=== PATIENT | female | born 1935 | race Caucasian/White ===

== ENCOUNTER 2017-10-19 10:25 | Outpatient (CLI) | payer MEDICARE, BC ==
--- NOTE | 2017-10-19 13:44 | CT ---
CT ANGIOGRAM OF THE BRAIN WITH AND WITHOUT CONTRAST: Date: 10-19-17 History: 82-year-old female with diagnosis of I63.9, cerebral infarction. According to the electro mechanical technologist, patient has history of aneurysm. Patient denies any problems at this time. This is a follow up. Comparison: No imaging studies of any modality of any body part is currently available. Technique: Standard noncontrast CT of brain performed. Next, IV injection of 100 ml of Isovue 370. Arterial bolus chasing technique scan performed from C1-2 level to vertex of head. Coronal and sagittal 3D MIP reconstructions. FINDINGS: There is a moderate-sized region of encephalomalacia and gliosis in the posterior left parietal niles x and underlying subcortical and deep white matter, encroaching upon the posterior superior frontal l obe. There is diffuse brain parenchymal volume loss. There are moderate-severe chronic ischemic white daphney er changes in the quick radiata and centrum semiovale. No obstructive hydrocephalus, acute intraaxia l or extraaxial hemorrhage, mass effect, midline shift, or extraaxial fluid collection. There is a stent thoughout the left sided carotid siphon. No significant atherosclerotic calcificatio n of any of the intracranial arteries, including the right carotid siphon. No evidence of any focal a cquired stenosis of any of the arteries of the anterior circulation or posterior circulation. No thro mbosis or occlusion. No evidence of AVM or dural venous sinus thrombosis. An anterior communicating a rtery is visualized. At the junction between the A1 segment and A2 segment of the left anterior cerebral artery and the an terior communicating artery, there is a minimal focal fusiform dilation of the origin of the left A2 segment, measuring approximately 3 x 3 mm. Otherwise, there is no other area suspicious for aneurysm. IMPRESSION: 1. Region of encephalomalacia consistent with old insult, probably old infarction in the left middle cerebral artery territory, in the left posterior upper parietal lobe. 2. Moderate to severe chronic ischemic white matter changes. 3. Slightly bulbous appearance of the origin of the A2 segment of the left anterior cerebral artery, which may be on the verge of becoming a small aneurysm. 4. No other patent potential aneurysm identified. 5. Stent in the left carotid siphon. 6. No other intracranial vascular abnormality identified. POS: MKCINLEY
== END 2017-10-19 10:26 | disposition home or self-care (01) ==
LOC: CT 10:25
PROVIDERS: ATTEND Psychiatry & Neurology Neurology
DX: I63.9 Cerebral infarction, unspecified (principal); I67.82 Cerebral ischemia; G93.89 Other specified disorders of brain; Z95.828 Presence of other vascular implants and grafts
CPT/HCPCS: 70496

== ENCOUNTER 2018-03-08 09:42 | Outpatient (CLI) | payer MEDICARE, BC ==
--- NOTE | 2018-03-08 12:05 | ULT ---
BILATERAL SCREENING VENOUS ULTRASOUND: Comparison: None. History: Swelling and edema since stroke that happened two years ago. Technique: Multiplanar grayscale and color doppler images were obtained in a bilateral lower extremit y venous ultrasound. Spectral analysis with doppler waveforms were performed. FINDINGS: The bilateral common femoral veins, profunda femoral veins, superficial femoral veins, and popliteal veins are normal in appearance without visible thrombus. These also demonstrate normal compression, f low, and augmentation. The posterior tibial veins and greater saphenous veins are also patent. IMPRESSION: No evidence of DVT. POS: [facility]IN[facility]
== END 2018-03-08 09:43 | disposition home or self-care (01) ==
LOC: ULT 09:42
PROVIDERS: ATTEND Psychiatry & Neurology Neurology
DX: R60.0 Localized edema (principal); R20.2 Paresthesia of skin; R29.898 Other symptoms and signs involving the musculoskeletal system
CPT/HCPCS: 93970

== ENCOUNTER 2018-11-28 23:02 | Emergency (ER) | payer MEDICARE, BC | END 2018-11-29 00:21 | disposition left against medical advice (07) | LOC: ERS 23:02 | DX: Z53.21 Procedure and treatment not carried out due to patient leaving prior to being seen by health care provider (principal) ==

== ENCOUNTER 2020-04-14 02:18 | Emergency (ER) | payer MEDICARE ==
[2020-04-14] MEDS ORDERED: Morphine 2 MG/ML SYRINGE ONE (02:50)
--- NOTE | 2020-04-14 07:58 | ULT ---
PRELIMINARY REPORT/[facility]/EMERGENCY AFTER HOURS PROCEDURE PROCEDURE: RIGHT Lower Extremity Doppler Venous Study . HISTORY: History . TECHNIQUE: Real-time and color Doppler ultrasound was performed of the deep venous system of the [facility] T lower extremity. COMPARISONS: None . TECHNICAL QUALITY: Satisfactory . FINDINGS: There was normal Doppler flow with no filling defects identified in the deep venous system of the [facility] lower extremity. There was normal compression and augmentation of the RIGHT common femoral, superficial femoral, great er saphenous, profundofemoral, popliteal, anterior tibial, and posterior tibial veins. IMPRESSION: No evidence of deep venous thrombosis . ELECTRONICALLY SIGNED BY: Claudio Rosenthal MD Apr 14, 2020 4:10:52 AM CDT This report is intended for review by the ordering physician only, in accordance of law. If you recei ve this report in error, please call [facility] at [phone]. FINAL REPORT Exam: Right lower extremity venous ultrasound with Doppler HISTORY: Erythema, swelling and pain. COMPARISON: None. TECHNIQUE: Grayscale, color flow, Doppler imaging and spectral waveform analysis performed of the [facility] lower extremity venous system. FINDINGS: There is compressibility, presence of flow and augmentation in the common femoral vein, femoral vein and popliteal vein. There is flow in the greater saphenous vein and profunda femoral vein and posterior tibial vein. IMPRESSION: No evidence of thrombus in the left lower extremity deep venous system. This report is in agreement w ith initial report by [facility]. Transcribed Date/Time: 04/14/2020 9:19 AM
--- NOTE | 2020-04-14 08:02 | RAD ---
Exam: Lumbar spine 3 views HISTORY: Back pain. COMPARISON: None. FINDINGS: Five lumbar-type vertebra. There appears to be loss of vertebral body height at L1, incompletely eval uated. Lumbar spine MRI may be beneficial. Grade 1 anterolisthesis of L3 upon L4 and L4 upon L5 without definite associated spondylolysis. Visualized bony pelvis and sacrum are intact. There is diffuse bone demineralization. IMPRESSION: Indeterminate L1 vertebral body fracture. Better interrogation with MRI is recommended given diffuse bone demineralization. Results of study discussed with Dr. Leigh on 04/14/2020 at 8:01 AM Code CR Transcribed Date/Time: 04/14/2020 9:21 AM
== END 2020-04-14 04:47 | disposition home or self-care (01) ==
LOC: ERS 02:18
DX: M54.5 Low back pain (principal); M79.89 Other specified soft tissue disorders; E03.9 Hypothyroidism, unspecified; K21.9 Gastro-esophageal reflux disease without esophagitis; Z86.73 Personal history of transient ischemic attack (TIA), and cerebral infarction without residual deficits; Z79.82 Long term (current) use of aspirin; Z79.899 Other long term (current) drug therapy
CPT/HCPCS: 72100; 96372; J2270

== ENCOUNTER 2020-05-03 20:07 | Emergency (ER) | payer MEDICARE, BC ==
[~2020-05-03 20:07] MED LIST: Iopamidol-370 76% 500 ML 1 ML ONE
[2020-05-03 21:13] LABS: #Basophils 0.1 thou/uL (0.0-0.2); #Eosinphils 0.3 thou/uL (0.0-0.7); #Lymphocytes 2.1 thou/uL (1.20-3.40); #Monocytes 1.3 thou/uL (0.11-0.59); #Neutrophils 5.3 thou/uL (1.40-6.50); %Eosinophils 3.4 % (0.0-10.0); %Lymphocytes 23.2 % (21.0-51.0); %Monocytes 14.5 % (0.0-10.0); Hemoglobin 11.6 g/dL (12.0-16.0); Mean Corpuscular HGB CONC 32.1 g/dL (32.0-36.0); Mean Corpuscular Hemoglobin 31.5 pg (27.0-31.0); Mean Corpuscular Volume 98.2 fL (78.0-98.0); Mean Platelet Volume 7.1 fL (7.4-10.4); Platelet Count 356 thou/uL (130-400); RBC Distribution Width 11.7 % (11.5-14.5); Red Blood Cell (RBC) Count 3.69 mill/uL (4.20-5.40); White Blood Cell (WBC) Count 9.2 thou/uL (4.8-10.8)
[2020-05-03 21:25] LABS: Bilirubin Negative (Negative); Blood, Urine Negative (Negative); Clarity Clear (Clear); Glucose, Urine (Dipstick) Normal (Negative); Ketone, Urine Trace mg/dL (Negative); Leukocyte Negative Leu/uL (Negative); Nitrite Negative (Negative); Protein, Urine (Dipstick) 30 mg/dL (Neg-Trace); Specific Gravity, Urine 1.019 (1.002-1.036); Squamous Epithelial 0-3 HPF (0-3); Urobilinogen Normal mg/dL (Less than 2); pH, Urine 6.5 (5.0-9.0)
[2020-05-03] MEDS ORDERED: Morphine 4 MG/ML VIAL ONE (21:32)
[2020-05-03 21:40] LABS: Bacteria/HPF 1+ HPF (None Seen)
[2020-05-03] MEDS ORDERED: Ondansetron PF 4 MG/2 ML Vial ONE (21:43)
[2020-05-03 22:00] LABS: Albumin 3.7 g/dL (3.4-4.8)
[2020-05-03 22:02] LABS: Calcium 9.2 mg/dL (7.8-10.44); Chloride 99 mmol/L (98-107); Potassium 4.2 mmol/L (3.5-5.1); Sodium 132 mmol/L (136-145)
[2020-05-03 22:03] LABS: Globulin 3.2 g/dL (2.4-3.5); Glucose 103 mg/dL (83-110); Protein, Total 6.9 g/dL (6.0-8.3)
[2020-05-03 22:04] LABS: Anion Gap 14 mmol/L (10-20); Bilirubin, Total 0.3 mg/dL (0.2-1.2); Carbon Dioxide 23 mmol/L (23-31)
[2020-05-03 22:05] LABS: Alkaline Phosphatase 85 U/L (40-110)
[2020-05-03 22:06] LABS: Calc. Creatinine Clearance 0 mL/min (70-130); Estimated GFR-MDRD 80
[2020-05-03 22:07] LABS: BUN (Urea Nitrogen) 10 mg/dL (9.8-20.1)
[2020-05-03 22:08] LABS: AST (SGOT) 24 U/L (5-34)
[2020-05-03 22:09] LABS: ALT (SGPT) 15 U/L (8-55)
--- NOTE | 2020-05-03 23:46 | CT ---
CT ABDOMEN AND PELVIS WITH IV CONTRAST 05/03/2020 CLINICAL INFORMATION: Abdomen and back pain. Urinary retention. COMPARISON: Noncontrast CT abdomen and pelvis on 04/24/2020 Technique: Multiple contiguous axial CT images are obtained through the abdomen and pelvis with IV contrast. Cor onal reformatted images are provided. FINDINGS: Lower Chest: Approximately 8 mm pulmonary nodule in the right middle lobe with additional adjacent re ticulonodular densities. These findings may be secondary to infectious or inflammatory process. However, given prominence of this nodular density, follow-up evaluation is recommended. Vessels: Vascular calcifications are seen in the abdominal aorta and iliac arteries. Abdomen: Portal vein:Patent Gallbladder: Increased density within the gallbladder on prior study is not appreciated on the curren t study. Liver: within normal limits. Spleen: within normal limits. Pancreas: within normal limits. Adrenals: within normal limits. Kidneys: An inferior pole left renal cyst is again seen with subcentimeter too small to characterize hypodense lesion midportion left kidney. Right kidney has a normal CT appearance and is rotated. Bowel: Moderate amount retained fecal material is again seen throughout the colon. Loops of small bow el are normal in caliber. Appendix: Not definitely visualized, but there are no secondary signs to suggest appendicitis. Peritoneum: No ascites or free air; no fluid collection. Mesentery and Retroperitoneum: No enlarged mesenteric or retroperitoneal lymph nodes. Abdominal Wall: within normal limits. Pelvis: Reproductive Organs: Uterus is small in size. Pelvis within normal limits. Bladder: Montiel catheter is present in the urinary bladder which is mostly decompressed. Gas is presen t in the urinary bladder likely attributable to the catheterization. Bones: Again noted is the mild burst fracture involving the L1 vertebral body with at least 50-60% lo ss of height anteriorly. There is slight retropulsion of fracture fragments into the central spinal canal which results in mild effacement of ventral aspect of the thecal sac. There is also a compressi on fracture involving the superior endplate of the T11 vertebral body. The compression fracture of the L1 vertebral body was seen on views of the lumbar spine on 04/14/2020. Exact age of the fracture i nvolving the T11 vertebral body is indeterminate. IMPRESSION: 1. Indeterminate age compression fracture T11 vertebral body with mild burst fracture of the L1 verte bral body. This mild burst fracture was seen on a lumbar spine radiograph on 04/14/2020. 2. Reticulonodular densities right middle lobe with more dominant 8 mm nodular density seen as well. These findings could be related to infectious/inflammatory process. However, follow-up CT scan thorax is recommended. 3. Left renal cyst with subcentimeter too small to characterize hypodense lesion left kidney. 4. Constipation.
[2020-05-04] MEDS ORDERED: Ondansetron PF 4 MG/2 ML Vial ONE (02:18)
[2020-05-04] MEDS ORDERED: Morphine 4 MG/ML VIAL ONE (03:45)
== END 2020-05-04 04:39 ==
LOC: ERS 20:07
DX: N39.0 Urinary tract infection, site not specified (principal); M48.54XG Collapsed vertebra, not elsewhere classified, thoracic region, subsequent encounter for fracture with delayed healing; E03.9 Hypothyroidism, unspecified; K21.9 Gastro-esophageal reflux disease without esophagitis; Z87.891 Personal history of nicotine dependence; Z86.73 Personal history of transient ischemic attack (TIA), and cerebral infarction without residual deficits; Z79.82 Long term (current) use of aspirin; Z79.899 Other long term (current) drug therapy
CPT/HCPCS: 36415; 51701; 74177; 80053; 81003; 81015; 85025; 87077; 87086; 87186; 96374; 96375; 96376; J2270; J2405; Q9967

== ENCOUNTER 2020-07-10 12:20 | Emergency (ER) | payer MEDICARE, BC ==
[2020-07-10 13:13] LABS: #Basophils 0.1 thou/uL (0.0-0.2); #Eosinphils 0.4 thou/uL (0.0-0.7); #Lymphocytes 1.9 thou/uL (1.20-3.40); #Monocytes 1.2 thou/uL (0.11-0.59); #Neutrophils 4.7 thou/uL (1.40-6.50); %Basophils 1.2 % (0.0-1.0); %Eosinophils 4.3 % (0.0-10.0); %Lymphocytes 22.6 % (21.0-51.0); %Monocytes 14.7 % (0.0-10.0); %Neutrophils 57.2 % (42.0-75.0); Hemoglobin 11.7 g/dL (12.0-16.0); Mean Corpuscular HGB CONC 31.7 g/dL (32.0-36.0); Mean Corpuscular Hemoglobin 30.9 pg (27.0-31.0); Mean Corpuscular Volume 97.6 fL (78.0-98.0); Mean Platelet Volume 7.3 fL (7.4-10.4); Platelet Count 316 thou/uL (130-400); RBC Distribution Width 12.2 % (11.5-14.5); Red Blood Cell (RBC) Count 3.77 mill/uL (4.20-5.40); White Blood Cell (WBC) Count 8.2 thou/uL (4.8-10.8)
--- NOTE | 2020-07-10 13:41 | ULT ---
EXAM: Right lower extremity venous Doppler US HISTORY: Right lower extremity edema, redness and pain FINDINGS: Grayscale, color-flow, Doppler evaluation, spectral analysis of the right lower extremity venous stru ctures is performed with 2-D imaging. The right common femoral, superficial femoral, popliteal, posterior tibial, proximal greater saphenous and profunda femoral veins are imaged. Exam is limited due to patient's inability to position appropriately. There is normal luminal compressibility, flow, and augmentation the visualized deep venous structures of the right lower extremity. IMPRESSION: No evidence of a deep vein thrombosis in the right lower extremity.
[2020-07-10] MEDS ORDERED: Acetaminophen 500 MG TAB ONE (14:03)
[2020-07-10] MEDS ORDERED: Ibuprofen 200 MG TAB ONE (14:03)
[2020-07-10] MEDS ORDERED: Clindamycin 150 MG CAP ONE (14:12)
== END 2020-07-10 15:20 | disposition home or self-care (01) ==
LOC: ERS 12:20
DX: L03.115 Cellulitis of right lower limb (principal); I10 Essential (primary) hypertension; E03.9 Hypothyroidism, unspecified; K21.9 Gastro-esophageal reflux disease without esophagitis; Z87.891 Personal history of nicotine dependence; Z79.899 Other long term (current) drug therapy; Z79.82 Long term (current) use of aspirin
CPT/HCPCS: 36415; 85025; 86140

== ENCOUNTER 2021-06-10 03:18 | Inpatient (IN) | payer MEDICARE, BC ==
[2021-06-10] MEDS ORDERED: Acetaminophen 500 MG TAB ONE (07:09)
[2021-06-10 08:29] LABS: Bacteria/HPF None Seen HPF (None Seen); Bilirubin Negative (Negative); Blood, Urine Negative (Negative); Clarity Clear (Clear); Glucose, Urine (Dipstick) Normal (Negative); Ketone, Urine 40 mg/dL (Negative); Leukocyte Negative Leu/uL (Negative); Nitrite Negative (Negative); Protein, Urine (Dipstick) 30 mg/dL (Neg-Trace); RBC/HPF 0-3 HPF (0-3); Specific Gravity, Urine 1.017 (1.002-1.036); Squamous Epithelial None Seen HPF (0-3); Urobilinogen Normal mg/dL (Less than 2); WBC/HPF 0-3 HPF (0-3)
[2021-06-10 09:05] LABS: #Monocytes 0.9 thou/uL (0.11-0.59); #Neutrophils 7.1 thou/uL (1.40-6.50); %Basophils 0.4 % (0.0-1.0); %Eosinophils 0.2 % (0.0-10.0); %Lymphocytes 11.2 % (21.0-51.0); %Monocytes 9.9 % (0.0-10.0); %Neutrophils 78.3 % (42.0-75.0); Hemoglobin 11.4 g/dL (12.0-16.0); Mean Corpuscular HGB CONC 32.7 g/dL (32.0-36.0); Mean Corpuscular Hemoglobin 32.1 pg (27.0-31.0); Mean Platelet Volume 6.4 fL (7.4-10.4); Platelet Count 349 thou/uL (130-400); RBC Distribution Width 11.6 % (11.5-14.5); Red Blood Cell (RBC) Count 3.55 mill/uL (4.20-5.40); White Blood Cell (WBC) Count 9.1 thou/uL (4.8-10.8)
[2021-06-10] MEDS ORDERED: Ondansetron ODT 4 MG TAB ONE (09:06)
[2021-06-10 09:29] LABS: ALT (SGPT) 14 U/L (8-55); AST (SGOT) 25 U/L (5-34); Albumin 3.6 g/dL (3.4-4.8); Alkaline Phosphatase 79 U/L (40-110); Anion Gap 9 mmol/L (10-20); BUN (Urea Nitrogen) 9 mg/dL (9.8-20.1); Bilirubin, Total 0.4 mg/dL (0.2-1.2); Calc. Creatinine Clearance 0 mL/min (70-130); Calcium 8.8 mg/dL (7.8-10.44); Carbon Dioxide 25 mmol/L (23-31); Chloride 93 mmol/L (98-107); Globulin 3.1 g/dL (2.4-3.5); Glucose 101 mg/dL (83-110); Potassium 4.1 mmol/L (3.5-5.1); Protein, Total 6.7 g/dL (5.8-8.1); Sodium 123 mmol/L (136-145)
[2021-06-10] MEDS ORDERED: Morphine 2 MG/ML VIAL ONE (10:56)
[2021-06-10 11:32] LABS: CK (CPK) 206 U/L (29-168); Magnesium 1.8 mg/dL (1.6-2.6); Phosphorus 2.8 mg/dL (2.3-4.7)
[2021-06-10] MEDS ORDERED: Magnesium 2 GM/50 ML 2 GM in Premix Bag 1 BAG IVPB SCH ×2 (13:30→21:15)
[2021-06-10 13:46] LABS: Anion Gap 11 mmol/L (10-20); BUN (Urea Nitrogen) 7 mg/dL (9.8-20.1); Calc. Creatinine Clearance 0 mL/min (70-130); Calcium 8.2 mg/dL (7.8-10.44); Carbon Dioxide 21 mmol/L (23-31); Chloride 98 mmol/L (98-107); Glucose 101 mg/dL (83-110); Potassium 4.1 mmol/L (3.5-5.1); Sodium 126 mmol/L (136-145)
[2021-06-10] MEDS ORDERED: Acetaminophen 325 MG TAB ONE (14:24)
[2021-06-10] MEDS ORDERED: Magnesium 2 GM/50 ML BAG (IN WATER) ONE (14:24)
[2021-06-10] MEDS: Acetaminophen 325 MG TAB PO PRN (14:30)
[2021-06-10 18:36] VITALS: BMI 21.8
[2021-06-10] MEDS ORDERED: Calcium Carbonate 500 MG ChewTAB PO PRN (21:10)
[2021-06-10 21:13] LABS: SARS-CoV-2 PCR by NAA Not Detected (NotDetected)
[2021-06-10] MEDS ORDERED: Gabapentin 100 MG CAP PO SCH (21:30)
[2021-06-10] MEDS: Sodium Chloride 0.9% 1,000 ML IV SCH (22:33)
[2021-06-10] MEDS ORDERED: traZODone HCl 50 MG TAB PO SCH (22:45)
[2021-06-11 05:29] LABS: #Basophils 0.1 thou/uL (0.0-0.2); #Eosinphils 0.1 thou/uL (0.0-0.7); #Lymphocytes 1.8 thou/uL (1.20-3.40); #Monocytes 1.3 thou/uL (0.11-0.59); #Neutrophils 5.7 thou/uL (1.40-6.50); %Basophils 0.9 % (0.0-1.0); %Lymphocytes 19.6 % (21.0-51.0); %Monocytes 14.9 % (0.0-10.0); %Neutrophils 63.6 % (42.0-75.0); Hemoglobin 10.7 g/dL (12.0-16.0); Mean Corpuscular HGB CONC 32.5 g/dL (32.0-36.0); Mean Corpuscular Hemoglobin 32.4 pg (27.0-31.0); Mean Corpuscular Volume 99.8 fL (78.0-98.0); Mean Platelet Volume 6.7 fL (7.4-10.4); Platelet Count 321 thou/uL (130-400); RBC Distribution Width 11.7 % (11.5-14.5); Red Blood Cell (RBC) Count 3.31 mill/uL (4.20-5.40)
[2021-06-11 05:55] LABS: Anion Gap 14 mmol/L (10-20); BUN (Urea Nitrogen) 6 mg/dL (9.8-20.1); Calc. Creatinine Clearance 65 mL/min (70-130); Calcium 8.2 mg/dL (7.8-10.44); Carbon Dioxide 20 mmol/L (23-31); Chloride 99 mmol/L (98-107); Glucose 67 mg/dL (83-110); Potassium 3.9 mmol/L (3.5-5.1); Sodium 129 mmol/L (136-145)
[2021-06-11] MEDS: Levothyroxine Sodium 100 MCG TAB PO SCH (06:15)
[2021-06-11] MEDS ORDERED: Artificial Tear Sol 15 ML BOT EA EYE PRN (07:38)
[2021-06-11] MEDS ORDERED: Sodium Chloride 0.65% Nasal 44 ML BOT EA NARE PRN (07:38)
[2021-06-11] MEDS ORDERED: Loratadine 10 MG TAB PO PRN (07:38)
[2021-06-11] MEDS ORDERED: Ondansetron PF 4 MG/2 ML Vial IVP PRN (07:38)
[2021-06-11] MEDS ORDERED: Hydrocerin (Eucerin) Cream 120 gm Jar TOP PRN (07:38)
[2021-06-11] MEDS ORDERED: GUAIFENESIN SF SOLN 200 MG/10 ML UDCUP PO PRN (07:38)
[2021-06-11] MEDS ORDERED: hydrALAZINE 20 MG/ML VIAL SLOW IVP PRN (07:38)
[2021-06-11] MEDS ORDERED: Cepastat Lozenges 1 LOZ PO PRN (07:38)
[2021-06-11] MEDS ORDERED: Loperamide HCl 2 MG CAP PO PRN (07:38)
[2021-06-11] MEDS: Folic Acid 1 MG TAB PO SCH (08:22)
[2021-06-11] MEDS: Aspirin 81 mg Enteric Coated Tablet PO SCH (08:22)
[2021-06-11] MEDS: Cyanocobalamin (Vitamin B-12) 1,000 MCG TAB PO SCH (08:22)
[2021-06-11] MEDS: Senokot S 8.6-50 MG TAB PO SCH ×2 (08:22→20:07)
[2021-06-11] MEDS: Heparin 5,000 UNITS/ML VIAL SC SCH ×2 (08:23→20:09)
[2021-06-11] MEDS: Polyethylene Glycol 3350 17 GM Packet PO SCH (08:23)
[2021-06-11] MEDS: Losartan 25 MG TAB PO SCH (08:24)
[2021-06-11] MEDS ORDERED: Olmesartan 5 MG TAB PO SCH (09:00)
[2021-06-11] MEDS: Sodium Chloride 0.9% 1,000 ML IV SCH (11:13)
[2021-06-11 17:32] LABS: Bacteria/HPF None Seen HPF (None Seen); Bilirubin Negative (Negative); Blood, Urine Negative (Negative); Clarity Clear (Clear); Glucose, Urine (Dipstick) Normal (Negative); Ketone, Urine 20 mg/dL (Negative); Leukocyte 25 Leu/uL (Negative); Nitrite Negative (Negative); Protein, Urine (Dipstick) Negative (Neg-Trace); RBC/HPF 0-3 HPF (0-3); Squamous Epithelial None Seen HPF (0-3); Urobilinogen Normal mg/dL (Less than 2); pH, Urine 5.5 (5.0-9.0)
[2021-06-11] MEDS: HYDROcodone/Acetaminophen 5/325 mg Tablet PO PRN (17:37)
[2021-06-11] MEDS: Ondansetron ODT 4 MG TAB PO PRN (17:40)
[2021-06-11] MEDS: Phenazopyridine HCl 100 MG TAB PO SCH (18:06)
[2021-06-11] MEDS: Nystatin Powder 15 GM BOT TOP SCH (20:08)
[2021-06-11] MEDS ORDERED: traZODone HCl 50 MG TAB PO SCH (21:00)
[2021-06-11] MEDS ORDERED: Gabapentin 100 MG CAP PO SCH (21:00)
[2021-06-11 22:16] LABS: Bilirubin Negative (Negative); Blood, Urine Negative (Negative); Glucose, Urine (Dipstick) Negative (Negative); Ketone, Urine 15 mg/dL (Negative); Leukocyte Negative (Negative); Protein, Urine (Dipstick) Negative (Neg-Trace)
[2021-06-11 22:17] LABS: Clarity Clear (Clear)
[2021-06-11 22:19] LABS: Nitrite Unable to Interpret (Negative)
[2021-06-12] MEDS: HYDROcodone/Acetaminophen 5/325 mg Tablet PO PRN (00:34)
[2021-06-12] MEDS: Ondansetron ODT 4 MG TAB PO PRN (00:42)
[2021-06-12 05:26] LABS: Eosinophils 1 % (0-10); Hemoglobin 11.7 g/dL (12.0-16.0); Hypochromia SLIGHT = 6-15 cells (100X) (0-5/hpf); Lymphocytes 20 % (21-51); MDiff Complete? YES; Mean Corpuscular HGB CONC 34.5 g/dL (32.0-36.0); Mean Corpuscular Hemoglobin 33.9 pg (27.0-31.0); Mean Corpuscular Volume 98.3 fL (78.0-98.0); Mean Platelet Volume 6.1 fL (7.4-10.4); Monocytes 18 % (0-10); Neutrophil 61 % (42-75); Platelet Count 315 thou/uL (130-400); Platelet Morphology Comment Appears Adequate; RBC Distribution Width 11.7 % (11.5-14.5); Red Blood Cell (RBC) Count 3.45 mill/uL (4.20-5.40); White Blood Cell (WBC) Count 10.5 thou/uL (4.8-10.8)
[2021-06-12 05:33] LABS: Anion Gap 11 mmol/L (10-20); BUN (Urea Nitrogen) 4 mg/dL (9.8-20.1); Calc. Creatinine Clearance 64 mL/min (70-130); Calcium 8.4 mg/dL (7.8-10.44); Carbon Dioxide 24 mmol/L (23-31); Chloride 99 mmol/L (98-107); Glucose 89 mg/dL (83-110); Phosphorus 2.4 mg/dL (2.3-4.7); Potassium 3.5 mmol/L (3.5-5.1); Sodium 130 mmol/L (136-145)
[2021-06-12] MEDS: Levothyroxine Sodium 100 MCG TAB PO SCH (05:33)
[2021-06-12] MEDS: Cyanocobalamin (Vitamin B-12) 1,000 MCG TAB PO SCH (10:47)
[2021-06-12] MEDS: Losartan 25 MG TAB PO SCH (10:48)
[2021-06-12] MEDS: Acetaminophen 325 MG TAB PO PRN (10:49)
[2021-06-12] MEDS: Phenazopyridine HCl 100 MG TAB PO SCH ×2 (10:49→13:57)
[2021-06-12] MEDS: Heparin 5,000 UNITS/ML VIAL SC SCH (10:50)
[2021-06-12] MEDS: Polyethylene Glycol 3350 17 GM Packet PO SCH (10:51)
[2021-06-12] MEDS: Aspirin 81 mg Enteric Coated Tablet PO SCH (10:51)
[2021-06-12] MEDS: Senokot S 8.6-50 MG TAB PO SCH (10:51)
[2021-06-12] MEDS: Nystatin Powder 15 GM BOT TOP SCH (10:52)
[2021-06-12] MEDS: Folic Acid 1 MG TAB PO SCH (10:54)
[2021-06-12 15:34] VITALS: BP 176/96; TEMP 98.1
== END 2021-06-12 20:00 | disposition home health service (06) | DRG 640 ==
LOC: ERS 03:18 → ERHOLD 10:44 → 2SE 17:55
PROVIDERS: ADMIT Internal Medicine; ATTEND Internal Medicine
DX: E87.1 Hypo-osmolality and hyponatremia (principal); G93.41 Metabolic encephalopathy; S32.050A Wedge compression fracture of fifth lumbar vertebra, initial encounter for closed fracture; S32.010A Wedge compression fracture of first lumbar vertebra, initial encounter for closed fracture; I69.351 Hemiplegia and hemiparesis following cerebral infarction affecting right dominant side; G89.29 Other chronic pain; D53.9 Nutritional anemia, unspecified; M54.9 Dorsalgia, unspecified; E83.42 Hypomagnesemia; I10 Essential (primary) hypertension; Z20.822 Contact with and (suspected) exposure to COVID-19; E03.9 Hypothyroidism, unspecified; K21.9 Gastro-esophageal reflux disease without esophagitis; X58.XXXA Exposure to other specified factors, initial encounter; Z79.82 Long term (current) use of aspirin; Z79.899 Other long term (current) drug therapy; Z90.89 Acquired absence of other organs
CPT/HCPCS: 36415; 51701; 70450; 71045; 72131; 80048; 80053; 81003; 81015; 82550; 82607; 82746; 83605; 83735; 83930; 83935; 84100; 84300; 84443; 84484; 85025; 93005; 95712; 95819; 95957; 96374; J0360; J1644; J2270; J3475; Q0162; U0003; U0005

== ENCOUNTER 2021-10-14 15:05 | Inpatient (IN) | payer MEDICARE, BC ==
[2021-10-14] MEDS ORDERED: Ondansetron PF 4 MG/2 ML Vial ONE (15:48)
[2021-10-14] MEDS ORDERED: Lorazepam 2 MG/ML VIAL ONE (15:48)
[2021-10-14 16:05] LABS: Hemoglobin 10.7 g/dL (12.0-16.0); Mean Corpuscular HGB CONC 33.5 g/dL (32.0-36.0); Mean Corpuscular Hemoglobin 31.8 pg (27.0-31.0); Mean Corpuscular Volume 94.8 fL (78.0-98.0); Mean Platelet Volume 6.6 fL (7.4-10.4); Platelet Count 358 thou/uL (130-400); RBC Distribution Width 13.3 % (11.5-14.5); Red Blood Cell (RBC) Count 3.37 mill/uL (4.20-5.40); White Blood Cell (WBC) Count 10.8 thou/uL (4.8-10.8)
[2021-10-14 16:13] LABS: PTT 29.1 sec (22.9-36.1); Prothrombin Time 13.5 sec (12.0-14.7)
[2021-10-14 16:28] LABS: Eosinophils 4 % (0-10); Lymphocytes 32 % (21-51); MDiff Complete? YES; Monocytes 12 % (0-10); Neutrophil 49 % (42-75); Ovalocytes SLIGHT = 2-5 cells (100X) (0-1/hpf); Platelet Morphology Comment Appears Adequate; Polychromasia SLIGHT = 2-3 cells (100X) (0-2/hpf); Reactive Lymphocytes 1 % (0-10)
[2021-10-14 17:10] LABS: ALT (SGPT) 16 U/L (8-55); AST (SGOT) 21 U/L (5-34); Albumin 3.5 g/dL (3.4-4.8); Alkaline Phosphatase 83 U/L (40-110); Anion Gap 15 mmol/L (10-20); BUN (Urea Nitrogen) 15 mg/dL (9.8-20.1); Bilirubin, Total 0.2 mg/dL (0.2-1.2); CK (CPK) 96 U/L (29-168); Calc. Creatinine Clearance 0 mL/min (70-130); Calcium 8.9 mg/dL (7.8-10.44); Carbon Dioxide 22 mmol/L (23-31); Chloride 98 mmol/L (98-107); Globulin 3.3 g/dL (2.4-3.5); Glucose 114 mg/dL (83-110); Potassium 4.5 mmol/L (3.5-5.1); Protein, Total 6.8 g/dL (5.8-8.1); Sodium 130 mmol/L (136-145)
[2021-10-14 17:31] LABS: CKMB 3.9 ng/mL (0-6.6)
[2021-10-14 19:56] LABS: Troponin I 0.035 ng/mL (< 0.028)
[2021-10-14 21:22] LABS: SARS-CoV-2 NAA Rapid Test Not Detected (NotDetected)
[2021-10-14 22:36] LABS: Troponin I 0.032 ng/mL (< 0.028)
[2021-10-14] MEDS ORDERED: Ondansetron PF 4 MG/2 ML Vial IVP PRN (23:06)
[2021-10-14] MEDS ORDERED: hydrALAZINE 20 MG/ML VIAL SLOW IVP PRN (23:06)
[2021-10-14] MEDS ORDERED: Labetalol HCl 100 MG/20 ML VIAL SLOW IVP PRN (23:06)
[2021-10-15 00:55] LABS: Amphetamine Not Detected (NotDetected); Barbiturates Screen Not Detected (NotDetected); Benzodiazepine Screen Detected (NotDetected); Cocaine Metabolite Screen Not Detected (NotDetected); Methadone Not Detected (NotDetected); Methamphetamine Not Detected (NotDetected); Opiate Screen Not Detected (NotDetected); Oxycodone Screen Not Detected (NotDetected); Phencyclidine (PCP) Not Detected (NotDetected); THC/Cannabinoid Screen Not Detected (NotDetected); Tricyclic Screen Not Detected (NotDetected)
[2021-10-15] MEDS ORDERED: Melatonin 3 MG TAB PO SCH (03:15)
[2021-10-15] MEDS: Acetaminophen 325 MG TAB PO PRN ×2 (05:16→21:03)
[2021-10-15] MEDS: Levothyroxine Sodium 100 MCG TAB PO SCH (05:16)
[2021-10-15 06:13] LABS: #Basophils 0.1 thou/uL (0.0-0.2); #Eosinphils 0.2 thou/uL (0.0-0.7); #Lymphocytes 1.3 thou/uL (1.20-3.40); #Monocytes 0.9 thou/uL (0.11-0.59); %Basophils 0.9 % (0.0-1.0); %Eosinophils 3.2 % (0.0-10.0); %Lymphocytes 17.6 % (21.0-51.0); %Monocytes 11.8 % (0.0-10.0); %Neutrophils 66.5 % (42.0-75.0); Hemoglobin 9.8 g/dL (12.0-16.0); Mean Corpuscular HGB CONC 33.7 g/dL (32.0-36.0); Mean Platelet Volume 6.6 fL (7.4-10.4); Platelet Count 307 thou/uL (130-400); RBC Distribution Width 13.2 % (11.5-14.5); Red Blood Cell (RBC) Count 3.06 mill/uL (4.20-5.40); White Blood Cell (WBC) Count 7.5 thou/uL (4.8-10.8)
[2021-10-15 06:41] LABS: Anion Gap 10 mmol/L (10-20); BUN (Urea Nitrogen) 12 mg/dL (9.8-20.1); Calc. Creatinine Clearance 0 mL/min (70-130); Calcium 8.4 mg/dL (7.8-10.44); Carbon Dioxide 22 mmol/L (23-31); Chloride 101 mmol/L (98-107); Glucose 91 mg/dL (83-110); Potassium 4.4 mmol/L (3.5-5.1); Sodium 129 mmol/L (136-145)
[2021-10-15] MEDS: Famotidine 20 MG TAB PO SCH ×2 (09:05→21:05)
[2021-10-15] MEDS: Enoxaparin Sodium 40 MG/0.4 ML SYRINGE SC SCH (09:06)
[2021-10-15] MEDS: Aspirin 81 mg Enteric Coated Tablet PO SCH (09:22)
[2021-10-15] MEDS ORDERED: Hydrochlorothiazide 25 MG TAB PO SCH (10:00)
[2021-10-15] MEDS ORDERED: Losartan 25 MG TAB PO SCH (10:00)
[2021-10-15] MEDS ORDERED: levETIRAcetam 500 MG TAB PO SCH (10:00)
[2021-10-15] MEDS ORDERED: Amlodipine 5 MG TAB PO SCH (10:00)
[2021-10-15] MEDS ORDERED: Lorazepam 2 MG/ML VIAL SLOW IVP SCH (10:30)
[2021-10-15 11:32] LABS: SARS-CoV-2 PCR by NAA Not Detected (NotDetected)
[2021-10-15 12:31] LABS: Free T4 (Free Thyroxine) 1.38 ng/dL (0.70-1.48)
[2021-10-15] MEDS: Docusate 100 MG CAP PO SCH (21:04)
[2021-10-15] MEDS: levETIRAcetam 500 MG TAB PO SCH (21:04)
[2021-10-15] MEDS: traZODone HCl 50 MG TAB PO SCH (21:04)
[2021-10-15] MEDS: Gabapentin 100 MG CAP PO SCH (21:04)
[2021-10-16] MEDS: Levothyroxine Sodium 100 MCG TAB PO SCH (05:55)
[2021-10-16 06:40] LABS: Anion Gap 11 mmol/L (10-20); BUN (Urea Nitrogen) 8 mg/dL (9.8-20.1); Calc. Creatinine Clearance 0 mL/min (70-130); Calcium 8.7 mg/dL (7.8-10.44); Carbon Dioxide 22 mmol/L (23-31); Chloride 98 mmol/L (98-107); Glucose 86 mg/dL (83-110); Potassium 3.9 mmol/L (3.5-5.1); Sodium 127 mmol/L (136-145)
[2021-10-16] MEDS: Amlodipine 5 MG TAB PO SCH (10:48)
[2021-10-16] MEDS: Cyanocobalamin (Vitamin B-12) 1,000 MCG TAB PO SCH (10:50)
[2021-10-16] MEDS: Hydrochlorothiazide 25 MG TAB PO SCH (10:50)
[2021-10-16] MEDS: levETIRAcetam 500 MG TAB PO SCH ×2 (10:50→21:04)
[2021-10-16] MEDS: Folic Acid 1 MG TAB PO SCH (10:50)
[2021-10-16] MEDS: Losartan 25 MG TAB PO SCH (10:51)
[2021-10-16] MEDS: Famotidine 20 MG TAB PO SCH ×2 (10:52→21:04)
[2021-10-16] MEDS: Aspirin 81 mg Enteric Coated Tablet PO SCH ×2 (10:52→11:12)
[2021-10-16] MEDS: Enoxaparin Sodium 40 MG/0.4 ML SYRINGE SC SCH (10:53)
[2021-10-16] MEDS: Polyethylene Glycol 3350 17 GM Packet PO SCH (10:53)
[2021-10-16] MEDS: Docusate 100 MG CAP PO SCH ×2 (11:19→21:04)
[2021-10-16 11:21] LABS: Band 1 % (5-11); Eosinophils 3 % (0-10); Hemoglobin 10.9 g/dL (12.0-16.0); Lymphocytes 24 % (21-51); MDiff Complete? YES; Mean Corpuscular HGB CONC 32.9 g/dL (32.0-36.0); Mean Corpuscular Hemoglobin 31.2 pg (27.0-31.0); Mean Corpuscular Volume 94.8 fL (78.0-98.0); Mean Platelet Volume 6.6 fL (7.4-10.4); Monocytes 8 % (0-10); Neutrophil 63 % (42-75); Platelet Count 321 thou/uL (130-400); Platelet Morphology Comment Appears Adequate; Polychromasia SLIGHT = 2-3 cells (100X) (0-2/hpf); RBC Distribution Width 13.1 % (11.5-14.5); Reactive Lymphocytes 1 % (0-10); White Blood Cell (WBC) Count 7.2 thou/uL (4.8-10.8)
[2021-10-16] MEDS: Gabapentin 100 MG CAP PO SCH (21:05)
[2021-10-16] MEDS: traZODone HCl 50 MG TAB PO SCH (21:07)
[2021-10-17] MEDS ORDERED: Calcium Carbonate 500 MG ChewTAB PO PRN (02:36)
[2021-10-17 05:59] LABS: Anion Gap 12 mmol/L (10-20); BUN (Urea Nitrogen) 10 mg/dL (9.8-20.1); Calc. Creatinine Clearance 50 mL/min (70-130); Carbon Dioxide 24 mmol/L (23-31); Chloride 94 mmol/L (98-107); Glucose 94 mg/dL (83-110); Potassium 3.7 mmol/L (3.5-5.1); Sodium 126 mmol/L (136-145)
[2021-10-17] MEDS: Levothyroxine Sodium 100 MCG TAB PO SCH (06:26)
[2021-10-17 07:14] LABS: #Eosinphils 0.4 thou/uL (0.0-0.7); #Lymphocytes 1.5 thou/uL (1.20-3.40); #Monocytes 1.1 thou/uL (0.11-0.59); #Neutrophils 5.3 thou/uL (1.40-6.50); %Basophils 0.4 % (0.0-1.0); %Eosinophils 4.3 % (0.0-10.0); %Lymphocytes 17.6 % (21.0-51.0); %Monocytes 13.7 % (0.0-10.0); Hemoglobin 11.6 g/dL (12.0-16.0); Mean Corpuscular HGB CONC 31.7 g/dL (32.0-36.0); Mean Corpuscular Hemoglobin 29.9 pg (27.0-31.0); Mean Corpuscular Volume 94.1 fL (78.0-98.0); Mean Platelet Volume 7.1 fL (7.4-10.4); Platelet Count 354 thou/uL (130-400); RBC Distribution Width 13.4 % (11.5-14.5); Red Blood Cell (RBC) Count 3.87 mill/uL (4.20-5.40); White Blood Cell (WBC) Count 8.3 thou/uL (4.8-10.8)
[2021-10-17] MEDS: Docusate 100 MG CAP PO SCH (09:32)
[2021-10-17] MEDS: Aspirin 81 mg Enteric Coated Tablet PO SCH (09:32)
[2021-10-17] MEDS: Hydrochlorothiazide 25 MG TAB PO SCH (09:32)
[2021-10-17] MEDS: Folic Acid 1 MG TAB PO SCH (09:32)
[2021-10-17] MEDS: Amlodipine 5 MG TAB PO SCH (09:33)
[2021-10-17] MEDS: levETIRAcetam 500 MG TAB PO SCH ×2 (09:33→20:44)
[2021-10-17] MEDS: Cyanocobalamin (Vitamin B-12) 1,000 MCG TAB PO SCH (09:33)
[2021-10-17] MEDS: Famotidine 20 MG TAB PO SCH (09:33)
[2021-10-17] MEDS: Enoxaparin Sodium 40 MG/0.4 ML SYRINGE SC SCH (09:35)
[2021-10-17] MEDS: Losartan 25 MG TAB PO SCH (09:37)
[2021-10-17] MEDS: Polyethylene Glycol 3350 17 GM Packet PO SCH (09:42)
[2021-10-17] MEDS ORDERED: Electrolyte Replacement Protocol 1 EACH FS SCH (11:15)
[2021-10-17] MEDS ORDERED: Electrolyte Replacement Protocol FS PRN (11:30)
[2021-10-17 13:55] VITALS: BMI 19.6
[2021-10-17 18:24] LABS: Bacteria/HPF 4+ HPF (None Seen); Bilirubin Negative (Negative); Blood, Urine Trace (Negative); Clarity Turbid (Clear); Glucose, Urine (Dipstick) Normal (Negative); Ketone, Urine Negative (Negative); Leukocyte 500 Leu/uL (Negative); Nitrite Negative (Negative); Protein, Urine (Dipstick) 20 mg/dL (Neg-Trace); Specific Gravity, Urine 1.023 (1.002-1.036); Squamous Epithelial 0-3 HPF (0-3); Urobilinogen Normal mg/dL (Less than 2); WBC/HPF Greater than 50 HPF (0-3)
[2021-10-17 18:28] LABS: Urine Culture Reflex Yes Yes
[2021-10-17] MEDS: Gabapentin 100 MG CAP PO SCH (20:43)
[2021-10-17] MEDS: traZODone HCl 50 MG TAB PO SCH (20:44)
[2021-10-17] MEDS: Senokot S 8.6-50 MG TAB PO SCH (20:44)
[2021-10-18] MEDS: Acetaminophen 325 MG TAB PO PRN (00:55)
[2021-10-18 05:44] LABS: Anion Gap 11 mmol/L (10-20); BUN (Urea Nitrogen) 19 mg/dL (9.8-20.1); Calc. Creatinine Clearance 47 mL/min (70-130); Calcium 8.9 mg/dL (7.8-10.44); Carbon Dioxide 23 mmol/L (23-31); Chloride 96 mmol/L (98-107); Glucose 97 mg/dL (83-110); Potassium 3.9 mmol/L (3.5-5.1); Sodium 126 mmol/L (136-145)
[2021-10-18] MEDS: Levothyroxine Sodium 100 MCG TAB PO SCH (06:28)
[2021-10-18] MEDS ORDERED: Magnesium 2 GM/50 ML 2 GM in Premix Bag 1 BAG IVPB SCH (07:00)
[2021-10-18] MEDS: Amlodipine 5 MG TAB PO SCH ×2 (09:11→09:33)
[2021-10-18] MEDS: Cyanocobalamin (Vitamin B-12) 1,000 MCG TAB PO SCH (09:11)
[2021-10-18] MEDS: Polyethylene Glycol 3350 17 GM Packet PO SCH (09:12)
[2021-10-18] MEDS: levETIRAcetam 500 MG TAB PO SCH ×2 (09:12→22:33)
[2021-10-18] MEDS: Aspirin 81 mg Enteric Coated Tablet PO SCH (09:12)
[2021-10-18] MEDS: Multivit, Therapeutic 1 TAB PO SCH (09:13)
[2021-10-18] MEDS: Senokot S 8.6-50 MG TAB PO SCH ×2 (09:13→22:34)
[2021-10-18] MEDS: Losartan 25 MG TAB PO SCH ×2 (09:13→15:12)
[2021-10-18] MEDS: Folic Acid 1 MG TAB PO SCH (09:13)
[2021-10-18] MEDS: Enoxaparin Sodium 40 MG/0.4 ML SYRINGE SC SCH (09:14)
[2021-10-18] MEDS: Sodium Chloride 0.9% 1,000 ML IV SCH (16:17)
[2021-10-18] MEDS: traZODone HCl 50 MG TAB PO SCH (22:34)
[2021-10-18] MEDS: Gabapentin 100 MG CAP PO SCH (22:37)
[2021-10-19] MEDS: Sodium Chloride 0.9% 1,000 ML IV SCH ×2 (06:12→14:46)
[2021-10-19] MEDS: Levothyroxine Sodium 100 MCG TAB PO SCH (06:12)
[2021-10-19] MEDS: Senokot S 8.6-50 MG TAB PO SCH (09:01)
[2021-10-19] MEDS: Folic Acid 1 MG TAB PO SCH (09:01)
[2021-10-19] MEDS: levETIRAcetam 500 MG TAB PO SCH ×2 (09:01→20:22)
[2021-10-19] MEDS: Multivit, Therapeutic 1 TAB PO SCH (09:01)
[2021-10-19] MEDS: Aspirin 81 mg Enteric Coated Tablet PO SCH (09:01)
[2021-10-19] MEDS: Enoxaparin Sodium 40 MG/0.4 ML SYRINGE SC SCH (09:02)
[2021-10-19] MEDS: Cyanocobalamin (Vitamin B-12) 1,000 MCG TAB PO SCH (09:02)
[2021-10-19] MEDS: Polyethylene Glycol 3350 17 GM Packet PO SCH (09:02)
[2021-10-19] MEDS: Losartan 25 MG TAB PO SCH (09:30)
[2021-10-19 10:16] LABS: Anion Gap 10 mmol/L (10-20); BUN (Urea Nitrogen) 14 mg/dL (9.8-20.1); Calc. Creatinine Clearance 51 mL/min (70-130); Calcium 8.3 mg/dL (7.8-10.44); Carbon Dioxide 24 mmol/L (23-31); Chloride 99 mmol/L (98-107); Glucose 117 mg/dL (83-110); Potassium 3.9 mmol/L (3.5-5.1); Sodium 129 mmol/L (136-145)
[2021-10-19 16:15] VITALS: TEMP 98
[2021-10-19 17:00] LABS: Sodium 131 mmol/L (136-145)
[2021-10-19] MEDS ORDERED: Amoxicillin/Potassium Clav 875 MG TAB PO SCH (17:00)
[2021-10-19] MEDS ORDERED: Nitrofurantoin ORAL SUSP. 25 MG/5 ML UDCUP PO SCH (18:00)
[2021-10-19] MEDS: Gabapentin 100 MG CAP PO SCH (20:21)
[2021-10-19] MEDS: traZODone HCl 50 MG TAB PO SCH (20:22)
[2021-10-19 20:50] VITALS: BP 155/71
[2021-10-19] MEDS ORDERED: Nitrofurantoin Monohyd/M-Cryst 100 MG CAP PO SCH (21:00)
== END 2021-10-19 20:45 | DRG 100 ==
LOC: ERS 15:05 → INTOOBSV 18:07 → ERHOLD 18:07 → NEURO 21:38 → OBSVTOIN 10-16 14:12
PROVIDERS: ADMIT Family Medicine; ATTEND Internal Medicine
DX: G40.909 Epilepsy, unspecified, not intractable, without status epilepticus (principal); Z20.822 Contact with and (suspected) exposure to COVID-19; G93.41 Metabolic encephalopathy; N39.0 Urinary tract infection, site not specified; Z16.23 Resistance to quinolones and fluoroquinolones; E87.1 Hypo-osmolality and hyponatremia; I69.151 Hemiplegia and hemiparesis following nontraumatic intracerebral hemorrhage affecting right dominant side; M48.56XA Collapsed vertebra, not elsewhere classified, lumbar region, initial encounter for fracture; B96.22 Other specified Shiga toxin-producing Escherichia coli [E. coli] [STEC] as the cause of diseases classified elsewhere; K21.9 Gastro-esophageal reflux disease without esophagitis; E03.9 Hypothyroidism, unspecified; F03.90 Unspecified dementia, unspecified severity, without behavioral disturbance, psychotic disturbance, mood disturbance, and anxiety; R77.8 Other specified abnormalities of plasma proteins; I08.1 Rheumatic disorders of both mitral and tricuspid valves; D53.9 Nutritional anemia, unspecified; M79.10 Myalgia, unspecified site; I10 Essential (primary) hypertension; Z28.21 Immunization not carried out because of patient refusal; Z88.2 Allergy status to sulfonamides; Z88.8 Allergy status to other drugs, medicaments and biological substances; Z79.899 Other long term (current) drug therapy; Z79.82 Long term (current) use of aspirin; Z82.49 Family history of ischemic heart disease and other diseases of the circulatory system; Z82.3 Family history of stroke; Z87.891 Personal history of nicotine dependence
CPT/HCPCS: 0240U; 36415; 70450; 70496; 70498; 70551; 80048; 80053; 80306; 81001; 82550; 82553; 83735; 83930; 83935; 84100; 84146; 84300; 84439; 84443; 84481; 84484; 85025; 85610; 85730; 87077; 87086; 87186; 93005; 93306; 95712; 95819; 95957; 96372; 96375; G0378; J1650; J2060; J2405; J3475; J7050; U0003; U0005